=== PATIENT | female | born 1990 | race Caucasian/White ===

== ENCOUNTER 2016-11-04 16:14 | Emergency (ER) | payer OTHER ==
[~2016-11-04] VITALS: Ht 157.5 cm; Wt 72.6 kg
[~2016-11-04 16:14] MED LIST: KEFLEX500 MG PO; VICODIN 5/500 M1 TAB PO
[2016-11-04 16:32] VITALS: BP 105/69
--- NOTE | 2016-11-04 17:33 | NUR ---
PT TO BED 8 AT THIS TIME.
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
[2016-11-04] MEDS ORDERED: KETOROLAC 30 MG/ML VIAL IM ONE (17:50)
[2016-11-04] MEDS ORDERED: CYCLOBENZAPRINE 10 MG TAB PO ONE (17:50)
--- NOTE | 2016-11-04 18:31 | NUR ---
AAO, COOPERATIVE PT TAKEN TO XRAY BY VERIFICATION SPECIALIST VIA WHEEL CHAIR
--- NOTE | 2016-11-04 19:23 | NUR ---
REPORT GIVEN RN CLARIZE
--- NOTE | 2016-11-04 19:26 | NUR ---
RECIEVED REPORT FROM NELSON FOR PT CONTINUITY OF CARE.
[2016-11-04 20:31] VITALS: BP 110/69
--- NOTE | 2016-11-04 20:31 | NUR ---
Patient discharged with v/s stable. Written and verbal after care instructions given and explained. Patient alert, oriented and verbalized understanding of instructions. Ambulatory with steady gait. All questions addressed prior to discharge. ID band removed. Patient advised to follow up with PMD. Rx of FLEXERIL 10MG AND MOTRIN 600MG given. Patient educated on indication of medication including possible reaction and side effects. Opportunity to ask questions provided and answered.
== END 2016-11-04 20:31 | disposition home or self-care (01) ==
LOC: MED 16:14
DX: S16.1XXA Strain of muscle, fascia and tendon at neck level, initial encounter (principal); S39.012A Strain of muscle, fascia and tendon of lower back, initial encounter; V89.2XXA Person injured in unspecified motor-vehicle accident, traffic, initial encounter; Y93.89 Activity, other specified; Y92.411 Interstate highway as the place of occurrence of the external cause; Y99.8 Other external cause status
CPT/HCPCS: 72110; 81002; 81025; 96372; 99284; J1885